=== PATIENT | female | born 1980 | race Caucasian/White ===

== ENCOUNTER 2021-04-16 11:02 | Outpatient (CLI) | payer OTHER ==
[~2021-04-16 11:02] MED LIST: OBSTETRIX DHA1 EACH PO; PRENATAL CAPLE1 EACH PO; Procardia 10MG CAP PO; Vistaryl PO
[2021-04-16] MEDS ORDERED: ECOTRIN81 MG PO (11:58)
== END 2021-04-17 09:34 | disposition home or self-care (01) ==
LOC: OBS/DEL 11:02
PROVIDERS: ATTEND Obstetrics & Gynecology
DX: O26.842 Uterine size-date discrepancy, second trimester (principal); O99.892 Other specified diseases and conditions complicating childbirth; O42.912 Preterm premature rupture of membranes, unspecified as to length of time between rupture and onset of labor, second trimester; O60.02 Preterm labor without delivery, second trimester; Z3A.24 24 weeks gestation of pregnancy

== ENCOUNTER 2021-05-09 02:45 | Outpatient (CLI) | payer OTHER ==
[~2021-05-09 02:45] MED LIST changes: +ECOTRIN81 MG PO
== END 2021-05-09 10:49 | disposition home or self-care (01) ==
LOC: NST 02:45
PROVIDERS: ATTEND Obstetrics & Gynecology
DX: Z34.83 Encounter for supervision of other normal pregnancy, third trimester (principal)

== ENCOUNTER 2021-07-23 06:26 | Outpatient (CLI) | payer OTHER ==
[2021-07-24] MEDS ORDERED: PRENATAL TABLE1 EAC1 PO (10:35)
[2021-07-24] MEDS ORDERED: CHILDREN'S ASPI81 MG PO (10:35)
== END 2021-07-23 10:47 | disposition home or self-care (01) ==
LOC: NST 06:26 → OBS/DEL 06:26 → NST 10:47
PROVIDERS: ATTEND Obstetrics & Gynecology
DX: Z34.83 Encounter for supervision of other normal pregnancy, third trimester (principal)

== ENCOUNTER 2021-07-24 09:52 | Inpatient (IN) | payer OTHER ==
[~2021-07-24] VITALS: Ht 160 cm; Wt 93.4 kg
[2021-07-24] MEDS ORDERED: CHILDREN'S ASPI81 MG PO (10:35)
[2021-07-24] MEDS ORDERED: PRENATAL TABLE1 EAC1 PO (10:35)
== END 2021-07-26 14:45 | disposition home or self-care (01) | DRG 807 ==
LOC: LDR 09:52 → OB/GYN 09:52
PROVIDERS: ADMIT Obstetrics & Gynecology; ATTEND Obstetrics & Gynecology
PROC: 10E0XZZ Delivery of Products of Conception, External Approach (ICD-10-PCS; principal; 2021-07-24)
PROC: 4A1HXFZ Monitoring of Products of Conception, Cardiac Rhythm, External Approach (ICD-10-PCS; 2021-07-24)
DX: O80 Encounter for full-term uncomplicated delivery (principal); Z37.0 Single live birth; Z3A.38 38 weeks gestation of pregnancy